=== PATIENT | female | born 1965 | race African-American/Black ===

== ENCOUNTER 2017-01-11 18:03 | Inpatient (IN) | payer BC ==
[~2017-01-11] VITALS: Ht 165.1 cm; Wt 100.7 kg
[~2017-01-11 18:03] MED LIST: CEPHALEXIN500 M1 PO; FLAGYL500 MG PO; FLEXERIL 1010 MG/TAB PO; LORTAB 5/500 501 TAB PO; MACROBID 1100 MG/CAP; MACROBID 1100 MG/CAP PO; NAPROSYN PO; NO HOME MEDICATIONS; NORCO 325 MG-51 TAB PO; NORCO 325 MG-7.1 TAB PO; NYSTATIN OR100 MU/ML PO; PEPCID 20MG TAB20 MG PO; PERCOCET 325 MG1 TA2 PO; PHENERGAN 25 TA25 MG PO; PREDNISONE20 MG PO; PRILOSEC 20MG20 MG PO; PRILOTC; SEPTRA DS 8001 TAB PO; TETRACYCLINE250 MG PO; ULTRAM50 MG PO; VALIUM 5MG T5 MG/TAB PO; ZITHROMAX Z PA250 MG PO; ZOFRAN 4MG T4 MG/TAB PO
[2017-01-11 18:36] LABS: BASO # 0.1 (0.0-0.2); BASO % 0.7 % (0.0-2.0); EOS # 0.1 (0.0-0.7); EOS % 1.3 % (0-4.0); GRAN # 6.3 (1.4-6.5); HEMATOCRIT 37.8 % (37.0-47.0); LYMPH # 3.4 (1.2-3.4); LYMPH % 31.9 % (20.0-51.0); MEAN CELL VOLUME 90 fl (80.0-100.0); MEAN CORPUSCULAR HEMOGLOBIN 31 pg (27.0-31.0); MEAN CORPUSCULAR HGB CONC 34 g/dl (33.0-37.0); MEAN PLATELET VOLUME 10.2 fl (7.4-10.4); MONO # 0.7 (0.1-0.6); MONO % 6.6 % (1.7-9.3); PLATELET COUNT 290 K/mm3 (130-400); RED BLOOD COUNT 4.21 M/mm3 (4.10-5.30); REDCELL DISTRIBUTION WIDTH-CV 12.7 % (11.5-14.5); WHITE BLOOD COUNT 10.6 K/mm3 (4.8-10.8)
[2017-01-11 18:49] LABS: ADJUSTED CALCIUM 9.1 mg/dL (8.4-10.2); ALANINE AMINOTRANSFERASE 28 U/L (9-52); ALBUMIN 4.4 gm/dL (3.5-5.0); ALKALINE PHOSPHATASE 54 U/L (50-136); ANION GAP 13 mmol/L (7-16); BILIRUBIN,TOTAL 0.7 mg/dL (0.0-1.0); BLOOD UREA NITROGEN 13 mg/dL (7-17); CALCIUM 9.4 mg/dL (8.4-10.2); CARBON DIOXIDE 26 mmol/L (22-30); CHLORIDE 99 mmol/L (98-107); CREATININE, serum 0.83 mg/dL (0.52-1.25); GLUCOSE 100 mg/dL (74-106); LIPASE 141 U/L (23-300); POTASSIUM 3.9 mmol/L (3.4-5.0); SODIUM 138 mmol/L (137-145); TOTAL PROTEIN 7.9 gm/dL (6.4-8.2)
[2017-01-11 19:00] LABS: B-TYPE NATRIURETIC PEPTIDE 25 pg/mL (0-125)
[2017-01-11 19:05] LABS: TROPONIN-I < 0.012 ng/mL (0.000-0.034)
[2017-01-11 21:24] VITALS: BP 128/70; PULSE 91; TEMP 97.2
[2017-01-12 03:56] VITALS: BP 127/72; PULSE 94; TEMP 97
[2017-01-12 07:22] VITALS: BP 123/77; PULSE 82
[2017-01-12 11:31] VITALS: BP 105/62; PULSE 78; TEMP 97.7
[2017-01-12 16:12] VITALS: BP 129/74; PULSE 85; TEMP 98.2
[2017-01-12 19:13] VITALS: BP 123/76; PULSE 91; TEMP 98
[2017-01-12 23:51] VITALS: BP 112/54; PULSE 61; TEMP 97.9
[2017-01-13 03:31] VITALS: BP 106/58; PULSE 81; TEMP 98.2
[2017-01-13 07:13] LABS: BASO # 0.1 (0.0-0.2); BASO % 0.5 % (0.0-2.0); EOS # 0.2 (0.0-0.7); EOS % 1.8 % (0-4.0); GRAN # 5.3 (1.4-6.5); GRAN % 56.8 % (42.2-75.2); HEMOGLOBIN 12.1 g/dl (12.5-16.0); LYMPH # 3.3 (1.2-3.4); LYMPH % 34.5 % (20.0-51.0); MEAN CELL VOLUME 92 fl (80.0-100.0); MEAN CORPUSCULAR HEMOGLOBIN 31 pg (27.0-31.0); MEAN CORPUSCULAR HGB CONC 34 g/dl (33.0-37.0); MEAN PLATELET VOLUME 10.5 fl (7.4-10.4); MONO # 0.6 (0.1-0.6); MONO % 6.1 % (1.7-9.3); PLATELET COUNT 294 K/mm3 (130-400); REDCELL DISTRIBUTION WIDTH-CV 13.1 % (11.5-14.5); WHITE BLOOD COUNT 9.4 K/mm3 (4.8-10.8)
[2017-01-13 07:18] LABS: CALCIUM 8.6 mg/dL (8.4-10.2); CREATININE, serum 0.91 mg/dL (0.52-1.25); POTASSIUM 4.2 mmol/L (3.4-5.0)
[2017-01-13 08:09] LABS: FACTOR VIII 156 % (50-150)
[2017-01-13 08:30] VITALS: BP 113/73; PULSE 86; TEMP 98
[2017-01-13 13:22] VITALS: BP 124/63; PULSE 96; TEMP 97.3
[2017-01-13 15:56] VITALS: BP 123/74; PULSE 95; TEMP 98
[2017-01-13 21:09] VITALS: BP 116/71; PULSE 99; TEMP 98.3
[2017-01-13 23:31] VITALS: BP 116/71; PULSE 82; TEMP 98.5
[2017-01-14 04:24] VITALS: BP 119/71; PULSE 83; TEMP 98.6
[2017-01-14 07:25] VITALS: BP 110/72; PULSE 83; TEMP 98.3
[2017-01-14 07:38] LABS: BASO # 0.1 (0.0-0.2); BASO % 0.7 % (0.0-2.0); EOS # 0.2 (0.0-0.7); EOS % 1.8 % (0-4.0); GRAN # 4.4 (1.4-6.5); GRAN % 52.5 % (42.2-75.2); HEMOGLOBIN 12.1 g/dl (12.5-16.0); LYMPH # 3.3 (1.2-3.4); LYMPH % 39.9 % (20.0-51.0); MEAN CELL VOLUME 92 fl (80.0-100.0); MEAN CORPUSCULAR HEMOGLOBIN 31 pg (27.0-31.0); MEAN CORPUSCULAR HGB CONC 33 g/dl (33.0-37.0); MEAN PLATELET VOLUME 10.2 fl (7.4-10.4); MONO # 0.4 (0.1-0.6); MONO % 4.7 % (1.7-9.3); PLATELET COUNT 291 K/mm3 (130-400); RED BLOOD COUNT 3.95 M/mm3 (4.10-5.30); REDCELL DISTRIBUTION WIDTH-CV 12.9 % (11.5-14.5); WHITE BLOOD COUNT 8.4 K/mm3 (4.8-10.8)
[2017-01-14 07:45] LABS: HEMATOCRIT 36.3 % (37.0-47.0)
[2017-01-14 07:50] LABS: CALCIUM 8.8 mg/dL (8.4-10.2); CREATININE, serum 0.84 mg/dL (0.52-1.25); POTASSIUM 4.3 mmol/L (3.4-5.0)
[2017-01-14 09:57] LABS: PROTEIN S ACTIVITY 113 % (65-149)
[2017-01-14 11:32] VITALS: BP 114/79; PULSE 98; TEMP 97.8
[2017-01-14 15:22] VITALS: BP 94/57; PULSE 71; TEMP 97.6
[2017-01-14] MEDS ORDERED: ELIQUIS 5MG PO (17:32)
[2017-01-15 11:54] LABS: PROTEIN C ACTIVITY 111 % (70-150)
== END 2017-01-14 18:09 | disposition home or self-care (01) | DRG 176 ==
LOC: COL.ER 18:03 → MEDICAL 20:02
PROVIDERS: Emergency Medicine; Family Medicine
DX: I26.99 Other pulmonary embolism without acute cor pulmonale (principal); E86.0 Dehydration; K21.9 Gastro-esophageal reflux disease without esophagitis; G47.33 Obstructive sleep apnea (adult) (pediatric); D18.09 Hemangioma of other sites; M79.7 Fibromyalgia; K76.9 Liver disease, unspecified
CPT/HCPCS: 99222-AI; 99232-AI; 99239; A9585; J1650; J2405; J7030; Q9967

== ENCOUNTER 2017-01-30 11:44 | Emergency (ER) | payer BC ==
[~2017-01-30] VITALS: Ht 165.1 cm; Wt 118.6 kg
[~2017-01-30 11:44] MED LIST changes: +ELIQUIS 5MG PO
[2017-01-30 11:48] VITALS: TEMP 98.8
[2017-01-30 14:39] VITALS: BP 137/82; PULSE 90
== END 2017-01-30 14:46 | disposition home or self-care (01) ==
LOC: COL.ER 11:44
DX: S09.90XA Unspecified injury of head, initial encounter (principal); W22.8XXA Striking against or struck by other objects, initial encounter; Z79.01 Long term (current) use of anticoagulants

== ENCOUNTER → 2017-05-07 | Outpatient (CLI) | payer OTHER | LOC: MC.RAD 11:05 | DX: Z12.31 Encounter for screening mammogram for malignant neoplasm of breast (principal) ==

== ENCOUNTER 2017-06-15 12:08 | Emergency (ER) | payer OTHER ==
[~2017-06-15] VITALS: Ht 165.1 cm; Wt 120.0 kg
[2017-06-15 12:12] VITALS: TEMP 97.9
[2017-06-15 12:59] LABS: BASO # 0.1 (0.0-0.2); BASO % 0.7 % (0.0-2.0); EOS # 0.1 (0.0-0.7); EOS % 1.1 % (0-4.0); GRAN # 5.2 (1.4-6.5); GRAN % 58.6 % (42.2-75.2); HEMATOCRIT 39.6 % (37.0-47.0); HEMOGLOBIN 13.5 g/dl (12.5-16.0); LYMPH % 34.1 % (20.0-51.0); MEAN CELL VOLUME 90 fl (80.0-100.0); MEAN CORPUSCULAR HEMOGLOBIN 31 pg (27.0-31.0); MEAN CORPUSCULAR HGB CONC 34 g/dl (33.0-37.0); MEAN PLATELET VOLUME 10.2 fl (7.4-10.4); MONO # 0.5 (0.1-0.6); MONO % 5.2 % (1.7-9.3); PLATELET COUNT 360 K/mm3 (130-400); RED BLOOD COUNT 4.41 M/mm3 (4.10-5.30)
[2017-06-15 13:10] LABS: ALANINE AMINOTRANSFERASE 45 U/L (9-52); ALBUMIN 4.7 gm/dL (3.5-5.0); ALKALINE PHOSPHATASE 64 U/L (50-136); ANION GAP 9 mmol/L (7-16); AST,SGOT 21 U/L (15-37); BILIRUBIN,TOTAL 0.7 mg/dL (0.0-1.0); BLOOD UREA NITROGEN 14 mg/dL (7-17); CALCIUM 9.2 mg/dL (8.4-10.2); CARBON DIOXIDE 25 mmol/L (22-30); CHLORIDE 105 mmol/L (98-107); CREATININE, serum 0.86 mg/dL (0.52-1.25); GLUCOSE 124 mg/dL (74-106); POTASSIUM 3.8 mmol/L (3.4-5.0); SODIUM 139 mmol/L (137-145); TOTAL PROTEIN 8.1 gm/dL (6.4-8.2)
[2017-06-15 13:22] LABS: TROPONIN-I < 0.012 ng/mL (0.000-0.034)
[2017-06-15 13:41] LABS: INR 1.3 (0.8-3.0); PROTHROMBIN TIME 15.2 SECONDS (9.7-12.8)
[2017-06-15] MEDS ORDERED: PRILOSEC 20MG20 MG PO (14:54)
[2017-06-15 15:00] VITALS: BP 115/76; PULSE 80
== END 2017-06-15 15:20 | disposition home or self-care (01) ==
LOC: COL.ER 12:08
PROVIDERS: Emergency Medicine
DX: K21.9 Gastro-esophageal reflux disease without esophagitis (principal); R00.2 Palpitations; E03.9 Hypothyroidism, unspecified; Z86.711 Personal history of pulmonary embolism; Z98.51 Tubal ligation status; Z98.890 Other specified postprocedural states
CPT/HCPCS: J2060; J2765

== ENCOUNTER 2019-02-24 09:47 | Emergency (ER) | payer OTHER ==
[~2019-02-24] VITALS: Ht 165.1 cm; Wt 113.6 kg
[2019-02-24 09:55] VITALS: TEMP 98.9
[2019-02-24 10:48] LABS: BASO # 0.1 (0.0-0.2); BASO % 0.7 % (0.0-2.0); EOS # 0.1 (0.0-0.7); EOS % 1.6 % (0-4.0); GRAN # 3.8 (1.4-6.5); GRAN % 55.2 % (42.2-75.2); HEMATOCRIT 38.1 % (37.0-47.0); HEMOGLOBIN 12.7 g/dl (12.5-16.0); LYMPH # 2.6 (1.2-3.4); LYMPH % 37.7 % (20.0-51.0); MEAN CELL VOLUME 89 fl (80.0-100.0); MEAN CORPUSCULAR HEMOGLOBIN 30 pg (27.0-31.0); MEAN CORPUSCULAR HGB CONC 33 g/dl (33.0-37.0); MEAN PLATELET VOLUME 10.3 fl (7.4-10.4); MONO # 0.3 (0.1-0.6); MONO % 4.7 % (1.7-9.3); PLATELET COUNT 312 K/mm3 (130-400); RED BLOOD COUNT 4.26 M/mm3 (4.10-5.30); REDCELL DISTRIBUTION WIDTH-CV 13.3 % (11.5-14.5)
[2019-02-24 11:03] LABS: ALBUMIN 4.3 gm/dL (3.5-5.0); BILIRUBIN,TOTAL 0.3 mg/dL (0.0-1.0); C-REACTIVE PROTEIN 0.7 mg/dL (0.0-0.9); CALCIUM 8.9 mg/dL (8.4-10.2); CREATININE, serum 0.81 (0.52-1.25); POTASSIUM 4.1 mmol/L (3.4-5.0); TOTAL PROTEIN 7.5 gm/dL (6.4-8.2)
[2019-02-24 11:48] LABS: COLLECTION METHOD CLEAN CATCH
[2019-02-24] MEDS ORDERED: BONINE25 MG PO (12:02)
[2019-02-24 12:08] LABS: MUCOUS Present /lpf; PH 5 (5-8); SQUAMOUS EPITHELIAL 0-2 /hpf; URINE APPEARANCE Clear; URINE BACTERIA None Seen /hpf; URINE BILIRUBIN Negative (NEGATIVE); URINE BLOOD 2+ (NEGATIVE); URINE COLOR Yellow; URINE GLUCOSE Negative (NEGATIVE); URINE KETONE Negative (NEGATIVE); URINE LEUKOCYTE ESTERASE Negative (NEGATIVE); URINE NITRATE Negative (NEGATIVE); URINE PROTEIN(semi-quant) Negative (NEGATIVE); URINE RBC 0-2 /hpf; URINE UROBILINOGEN Negative (NEGATIVE)
[2019-02-24 12:40] VITALS: BP 119/79; PULSE 74
== END 2019-02-24 12:41 | disposition home or self-care (01) ==
LOC: COL.ER 09:47
PROVIDERS: Family Medicine
DX: H83.01 Labyrinthitis, right ear (principal)
CPT/HCPCS: J2405; J7030

== ENCOUNTER 2019-05-08 11:49 | Emergency (ER) | payer BC ==
[~2019-05-08] VITALS: Ht 165.1 cm; Wt 110.5 kg
[~2019-05-08 11:49] MED LIST changes: +BONINE25 MG PO
[2019-05-08 12:09] VITALS: TEMP 98
[2019-05-08 12:34] LABS: BASO # 0.1 (0.0-0.2); BASO % 0.6 % (0.0-2.0); EOS # 0.1 (0.0-0.7); EOS % 1.2 % (0-4.0); GRAN # 4.8 (1.4-6.5); GRAN % 54.4 % (42.2-75.2); HEMATOCRIT 39.4 % (37.0-47.0); HEMOGLOBIN 13.5 g/dl (12.5-16.0); LYMPH # 3.4 (1.2-3.4); LYMPH % 38.6 % (20.0-51.0); MEAN CELL VOLUME 89 fl (80.0-100.0); MEAN CORPUSCULAR HEMOGLOBIN 31 pg (27.0-31.0); MEAN CORPUSCULAR HGB CONC 34 g/dl (33.0-37.0); MEAN PLATELET VOLUME 10.2 fl (7.4-10.4); MONO # 0.4 (0.1-0.6); MONO % 4.9 % (1.7-9.3); PLATELET COUNT 324 K/mm3 (130-400); RED BLOOD COUNT 4.41 M/mm3 (4.10-5.30); REDCELL DISTRIBUTION WIDTH-CV 13.2 % (11.5-14.5)
[2019-05-08 12:37] LABS: PROTHROMBIN TIME 12.1 SECONDS (9.7-12.8)
[2019-05-08 12:53] LABS: ALANINE AMINOTRANSFERASE 28 U/L (9-52); ALBUMIN 4.3 gm/dL (3.5-5.0); ALKALINE PHOSPHATASE 61 U/L (50-136); ANION GAP 8 mmol/L (7-16); AST,SGOT 28 U/L (15-37); BILIRUBIN,TOTAL 0.6 mg/dL (0.0-1.0); BLOOD UREA NITROGEN 11 mg/dL (7-17); CALCIUM 8.8 mg/dL (8.4-10.2); CARBON DIOXIDE 28 mmol/L (22-30); CHLORIDE 103 mmol/L (98-107); GLUCOSE 101 mg/dL (74-106); LIPASE 113 U/L (23-300); SODIUM 139 mmol/L (137-145); TOTAL PROTEIN 7.5 gm/dL (6.4-8.2)
[2019-05-08 12:58] LABS: C-REACTIVE PROTEIN < 0.5 mg/dL (0.0-0.9)
[2019-05-08 13:08] LABS: TROPONIN-I < 0.012 ng/mL (0.000-0.035)
[2019-05-08 13:24] LABS: MONOSCREEN NEGATIVE
[2019-05-08] MEDS ORDERED: LIDODERM 5% PATC1 EA TP (15:09)
[2019-05-08] MEDS ORDERED: FIORICET 325 MG1 TA1 PO (15:09)
[2019-05-08] MEDS ORDERED: NAPROXEN 3375 MG/TAB PO (15:09)
[2019-05-08 15:33] VITALS: BP 113/72; PULSE 72
== END 2019-05-08 15:34 | disposition home or self-care (01) ==
LOC: COL.ER 11:49
PROVIDERS: Emergency Medicine
DX: R51 Headache (principal)
CPT/HCPCS: J0780; J1200; J1885; J7030

== ENCOUNTER → 2019-12-26 | Outpatient (CLI) | payer BC ==
[~2019-12-26] MED LIST changes: +FIORICET 325 MG1 TA1 PO; +LIDODERM 5% PATC1 EA TP; +NAPROXEN 3375 MG/TAB PO
== END ==
LOC: MC.RAD 13:17
DX: Z12.31 Encounter for screening mammogram for malignant neoplasm of breast (principal)

== ENCOUNTER 2020-05-24 09:33 | Emergency (ER) | payer BC ==
[~2020-05-24] VITALS: Ht 165.1 cm; Wt 112.3 kg
[2020-05-24 09:43] VITALS: TEMP 98.4
[2020-05-24 10:26] LABS: COLLECTION METHOD CLEAN CATCH
[2020-05-24 10:37] LABS: BASO # 0.1 (0.0-0.2); BASO % 0.5 % (0.0-2.0); EOS # 0.1 (0.0-0.7); EOS % 0.4 % (0-4.0); GRAN # 9.8 (1.4-6.5); GRAN % 75.5 % (42.2-75.2); HEMATOCRIT 40.3 % (37.0-47.0); HEMOGLOBIN 13.6 g/dl (12.5-16.0); LYMPH # 2.4 (1.2-3.4); LYMPH % 18.7 % (20.0-51.0); MEAN CELL VOLUME 89 fl (80.0-100.0); MEAN CORPUSCULAR HEMOGLOBIN 30 pg (27.0-31.0); MEAN CORPUSCULAR HGB CONC 34 g/dl (33.0-37.0); MONO # 0.6 (0.1-0.6); MONO % 4.7 % (1.7-9.3); PLATELET COUNT 260 K/mm3 (130-400); RED BLOOD COUNT 4.52 M/mm3 (4.10-5.30); REDCELL DISTRIBUTION WIDTH-CV 13.2 % (11.5-14.5)
[2020-05-24 10:39] LABS: MUCOUS Present /lpf; PH 5 (5-8); URINE APPEARANCE Hazy; URINE BACTERIA Rare /hpf; URINE BILIRUBIN Negative (NEGATIVE); URINE BLOOD 2+ (NEGATIVE); URINE COLOR Yellow; URINE GLUCOSE Negative (NEGATIVE); URINE KETONE Negative (NEGATIVE); URINE LEUKOCYTE ESTERASE Negative (NEGATIVE); URINE NITRATE Negative (NEGATIVE); URINE PROTEIN(semi-quant) Negative (NEGATIVE); URINE UROBILINOGEN Negative (NEGATIVE)
[2020-05-24 10:43] LABS: ALBUMIN 4.5 gm/dL (3.5-5.0); BILIRUBIN,TOTAL 0.6 mg/dL (0.0-1.0); C-REACTIVE PROTEIN 1.2 mg/dL (0.0-0.9); CALCIUM 9.1 mg/dL (8.4-10.2); CREATININE, serum 1.24 (0.52-1.25); POTASSIUM 3.6 mmol/L (3.4-5.0); TOTAL PROTEIN 8.1 gm/dL (6.4-8.2)
[2020-05-24 13:50] VITALS: BP 172/94; PULSE 91
[2020-05-25] MEDS ORDERED: PYRIDIUM 100MG100 MG PO (18:37)
== END 2020-05-24 13:50 | disposition left against medical advice (07) ==
LOC: COL.ER 09:33
PROVIDERS: Family Medicine
DX: K85.90 Acute pancreatitis without necrosis or infection, unspecified (principal); N13.2 Hydronephrosis with renal and ureteral calculous obstruction; Z53.29 Procedure and treatment not carried out because of patient's decision for other reasons; Z90.710 Acquired absence of both cervix and uterus; Z98.61 Coronary angioplasty status; Z88.0 Allergy status to penicillin; Z88.1 Allergy status to other antibiotic agents; Z88.2 Allergy status to sulfonamides
CPT/HCPCS: J2270; J2405; J7120

== ENCOUNTER 2020-05-24 17:14 | Inpatient (IN) | payer BC ==
[~2020-05-24] VITALS: Ht 165.1 cm; Wt 118.3 kg
--- NOTE | 2020-05-24 21:40 | NUR ---
Admitted to room 314 via wheelchair. Oriented to room/policy. Admission assessment complete. Admission orders initiated. VS stable. Plan of care discussed for medication admin/urine straining/calling for pain meds as needed. Verbalizes understanding/denies questions/concerns. Call light in reach. Will monitor.
[2020-05-24 21:42] LABS: CHOLESTEROL RISK RATIO 2.8
[2020-05-24 21:47] VITALS: BP 137/59; PULSE 82; TEMP 98.1
[2020-05-24 22:14] LABS: TSH w REFLEX 1.06 uIU/mL (0.465-4.680)
--- NOTE | 2020-05-24 22:30 | NUR ---
Refused Lovenox/flomax. States she doesnt like to take medications. This nurse did go over side effects/adverse reaction on each med but states she is not interested in starting new medications.
[2020-05-25] VITALS (10 sets, daily range): BP systolic 113–142; BP diastolic 65–85; PULSE 84–95; TEMP 97.4–98.5
--- NOTE | 2020-05-25 00:30 | NUR ---
Called this nurse to room to discuss "blood thinners." states she has taken heparin and eliquis in the past and would be willing to start these. Will pass info on to dayshift.
--- NOTE | 2020-05-25 01:28 | NUR ---
PT IS REFUSING TO WEAR A HOSPITAL CPAP. PT IS IN NO RESPIRATORY DISTRESS WITH NORMAL VITALS. WILL CONTINUE TO MONITOR AND ASSESS.
--- NOTE | 2020-05-25 05:00 | NUR ---
Did not rest much this shift. Denied pain/nausea/shortness of breath. States she is nervous about being here and having a hard time sleeping. Denies questions/concerns. Call light in reach. Will monitor.
--- NOTE | 2020-05-25 10:22 | NUR ---
Initial visit; Nurse with patient, [employer] wished patient well and let patient know of the availability of [facility] here at [facility]. Patient thanked [employer] for offering God's blessings.
--- NOTE | 2020-05-25 11:24 | NUR ---
Plan to return home with spouse Rigo . SW met with patient about her care. Patient reports that she resides in [place] with her spouse and DTR Alfie . Patient denies having a DPOA. Patient reports that her spouse can make decisions. Patient reports that her PCP is Dr. Manriquez at [facility] with last appointment in Apr 2019. Patient reports that she use [facility] on [address] in . Patient indicated that she was has CPAP but recently stopped using it. Decnies being on any other supports or having any other DME use. Patient reports that she and her takled about surgery and she has decided to do it. Patient reports being fearful of the seadative and that it is hard to wake her after the procedure, indicated that she needs her cpap before they put her to sleep. SW staffed with nurse about consent to surgery. Notifed of other concerns. SW offered services and supports, will continue to follow.
[2020-05-25 11:31] LABS: BASO % 0.4 % (0.0-2.0); EOS # 0.1 (0.0-0.7); EOS % 1.2 % (0-4.0); GRAN % 67.2 % (42.2-75.2); LYMPH # 2.2 (1.2-3.4); LYMPH % 24.8 % (20.0-51.0); MEAN CELL VOLUME 88 fl (80.0-100.0); MEAN CORPUSCULAR HEMOGLOBIN 30 pg (27.0-31.0); MEAN CORPUSCULAR HGB CONC 34 g/dl (33.0-37.0); MEAN PLATELET VOLUME 9.8 fl (7.4-10.4); MONO # 0.6 (0.1-0.6); MONO % 6.2 % (1.7-9.3); PLATELET COUNT 297 K/mm3 (130-400); RED BLOOD COUNT 4.04 M/mm3 (4.10-5.30); REDCELL DISTRIBUTION WIDTH-CV 13.4 % (11.5-14.5)
[2020-05-25 11:37] LABS: HEMATOCRIT 35.7 % (37.0-47.0)
[2020-05-25 11:40] LABS: ALBUMIN 3.8 gm/dL (3.5-5.0); BILIRUBIN,TOTAL 0.7 mg/dL (0.0-1.0); CALCIUM 8.6 mg/dL (8.4-10.2); CREATININE, serum 1.45 (0.52-1.25); MAGNESIUM 1.8 mg/dL (1.6-2.3); POTASSIUM 3.8 mmol/L (3.4-5.0); TOTAL PROTEIN 6.9 gm/dL (6.4-8.2)
--- NOTE | 2020-05-25 17:50 | NUR ---
Patient taken by bed for procedure. WBG assessed and WNL. Patient NPO for procedure. Has had complaints of pain in right side and lower abdomen. A&Ox4. VSS. IV CDI, fluid by gravity. No further needs expressed from the patient
[2020-05-25] MEDS ORDERED: PYRIDIUM 100MG100 MG PO (18:37)
--- NOTE | 2020-05-25 19:25 | NUR ---
returned to room per bed from PACU, awake and alert, IVinfusing per dial-a-flow at 100ml/hr,
--- NOTE | 2020-05-25 19:45 | NUR ---
full assessment completed, see interventions for further info, assisted up to bathroom and voided large amount red colored urine, then assisted back to bed, denies pain or needs, given her water which she brought with her, tolerate well
--- NOTE | 2020-05-25 20:15 | NUR ---
resting in bed between checks looking at phone, denies needs
--- NOTE | 2020-05-25 21:45 | NUR ---
assisted up to bathroom,
--- NOTE | 2020-05-25 22:40 | NUR ---
appears to be sleeping, in bed, eyes closed, resp quiet and easy
[2020-05-26 00:30] VITALS: BP 130/75; PULSE 91; TEMP 97.8
--- NOTE | 2020-05-26 00:30 | NUR ---
up and about in room inependently, denies pain or needs
--- NOTE | 2020-05-26 02:37 | NUR ---
in bed and appears to be dozing
[2020-05-26 03:13] VITALS: BP 118/62; PULSE 92; TEMP 98.1
--- NOTE | 2020-05-26 06:14 | NUR ---
appears to be sleeping
--- NOTE | 2020-05-26 06:55 | NUR ---
bedside shift report given to NASEEM Sarkar
[2020-05-26 08:26] VITALS: BP 144/76; PULSE 91; TEMP 97.9
--- NOTE | 2020-05-26 09:05 | NUR ---
Pt awake and alert this morning upon entry, no C/O pain at this time, talkative. Shift assessments complete, left Pt call light in reach, bed in lowest position.
[2020-05-26 09:12] LABS: BASO % 0.1 % (0.0-2.0); EOS % 0.1 % (0-4.0); GRAN # 8.3 (1.4-6.5); GRAN % 85.8 % (42.2-75.2); HEMATOCRIT 37.9 % (37.0-47.0); HEMOGLOBIN 12.8 g/dl (12.5-16.0); LYMPH # 1.2 (1.2-3.4); MEAN CELL VOLUME 88 fl (80.0-100.0); MEAN CORPUSCULAR HEMOGLOBIN 30 pg (27.0-31.0); MEAN CORPUSCULAR HGB CONC 34 g/dl (33.0-37.0); MEAN PLATELET VOLUME 9.9 fl (7.4-10.4); MONO # 0.2 (0.1-0.6); MONO % 1.6 % (1.7-9.3); PLATELET COUNT 311 K/mm3 (130-400); RED BLOOD COUNT 4.29 M/mm3 (4.10-5.30); REDCELL DISTRIBUTION WIDTH-CV 13.2 % (11.5-14.5)
[2020-05-26 09:21] LABS: CALCIUM 8.8 mg/dL (8.4-10.2); CREATININE, serum 0.95 (0.52-1.25); POTASSIUM 4.2 mmol/L (3.4-5.0)
--- NOTE | 2020-05-26 11:32 | NUR ---
Checked Pt, in bed awake, no issues noted.
[2020-05-26 12:02] VITALS: BP 152/72; PULSE 88; TEMP 98.3
[2020-05-26 16:00] VITALS: BP 134/78; PULSE 75; TEMP 98
[2020-05-26 18:15] VITALS: BP 134/78; PULSE 75; TEMP 98
--- NOTE | 2020-05-26 18:26 | NUR ---
Pt testing in the room, no complaints today, VS have remained stable
--- NOTE | 2020-05-26 21:55 | NUR ---
Individual alert orient x's 4. denied pain and or discomfort. VSS. Up adlib to restroom with out difficulty.
[2020-05-27] VITALS: BP 136/76; PULSE 78; TEMP 98.2
--- NOTE | 2020-05-27 04:00 | NUR ---
Patient resting in bed. Denies needs. Call light in reach.
[2020-05-27 04:45] VITALS: BP 140/74; PULSE 90; TEMP 97.7
--- NOTE | 2020-05-27 06:33 | NUR ---
Patient had uneventful night. Resting in bed this AM. Call light in reach.
--- NOTE | 2020-05-27 07:09 | NUR ---
Report given to NASEEM Sarkar
[2020-05-27 08:10] VITALS: BP 134/83; PULSE 82; TEMP 97.9
--- NOTE | 2020-05-27 08:30 | NUR ---
Pt awake and alert upon entry, in bed, no C/O pain at this time. shift assessments complete, left Pt call light in reach, bed in lowest position.
[2020-05-27 11:18] VITALS: BP 136/87; PULSE 76; TEMP 97.7
--- NOTE | 2020-05-27 12:50 | NUR ---
Pt discharged to home, discussed discharge packet with Pt. Escorted Pt to entrance, Pt left with spouse via private transportation.
== END 2020-05-27 14:13 | disposition home or self-care (01) | DRG 659 ==
LOC: COL.ER 17:14 → MEDICAL 19:58
PROVIDERS: Internal Medicine; Physician Assistant; Student in an Organized Health Care Education/Training Program; ADMIT Urology
PROC: 0T778DZ Dilation of Left Ureter with Intraluminal Device, Via Natural or Artificial Opening Endoscopic (ICD-10-PCS; principal; 2020-05-25 17:00)
PROC: 0TC78ZZ Extirpation of Matter from Left Ureter, Via Natural or Artificial Opening Endoscopic (ICD-10-PCS; 2020-05-25 17:00)
PROC: BT1F1ZZ Fluoroscopy of Left Kidney, Ureter and Bladder using Low Osmolar Contrast (ICD-10-PCS; 2020-05-25 17:00)
DX: N13.2 Hydronephrosis with renal and ureteral calculous obstruction (principal); K85.90 Acute pancreatitis without necrosis or infection, unspecified; K57.30 Diverticulosis of large intestine without perforation or abscess without bleeding; K76.9 Liver disease, unspecified; N17.9 Acute kidney failure, unspecified; M79.7 Fibromyalgia; E03.9 Hypothyroidism, unspecified; E11.65 Type 2 diabetes mellitus with hyperglycemia; I10 Essential (primary) hypertension; K21.9 Gastro-esophageal reflux disease without esophagitis; G47.33 Obstructive sleep apnea (adult) (pediatric); Z99.81 Dependence on supplemental oxygen; Z86.711 Personal history of pulmonary embolism; Z90.710 Acquired absence of both cervix and uterus; Z88.0 Allergy status to penicillin; Z88.2 Allergy status to sulfonamides
CPT/HCPCS: 99223-AI; 99232-AI; 99239; C1769; C1894; C2617; J0690; J1100; J1650; J1885; J2270; J2405; J2704; J3010; J7030; Q9967

== ENCOUNTER → 2021-01-05 | Outpatient (CLI) | payer BC ==
[~2021-01-05] MED LIST changes: +PYRIDIUM 100MG100 MG PO
== END ==
LOC: MC.RAD 09:28
DX: Z12.31 Encounter for screening mammogram for malignant neoplasm of breast (principal)

== ENCOUNTER 2022-02-09 12:18 | Emergency (ER) | payer BC ==
[~2022-02-09] VITALS: Ht 165.1 cm; Wt 111.4 kg
[2022-02-09 13:19] VITALS: TEMP 98.3
[2022-02-09 14:21] LABS: BASO % 0.5 % (0.0-2.0); EOS # 0.1 K/mm3 (0.0-0.7); EOS % 1.5 % (0.0-4.0); GRAN # 4.3 K/mm3 (1.4-6.5); HEMATOCRIT 38.8 % (37.0-47.0); HEMOGLOBIN 13.1 g/dl (12.5-16.0); LYMPH # 2.8 K/mm3 (1.2-3.4); LYMPH % 36.3 % (20.0-51.0); MEAN CELL VOLUME 89 fl (80.0-100.0); MEAN CORPUSCULAR HEMOGLOBIN 30 pg (27-31); MEAN CORPUSCULAR HGB CONC 34 g/dl (33.0-37.0); MEAN PLATELET VOLUME 9.9 fl (7.4-10.4); MONO # 0.3 K/mm3 (0.1-0.6); MONO % 4.4 % (1.7-9.3); PLATELET COUNT 359 K/mm3 (130-400); RED BLOOD COUNT 4.35 M/mm3 (4.10-5.30); REDCELL DISTRIBUTION WIDTH-CV 13.3 % (11.5-14.5)
[2022-02-09 14:39] LABS: BILIRUBIN,TOTAL 0.4 mg/dL (0.2-1.2); CREATININE, serum 0.92 mg/dL (0.57-1.11); TOTAL PROTEIN 7.4 gm/dL (6.2-8.1)
[2022-02-09 17:34] VITALS: BP 118/75; PULSE 75
== END 2022-02-09 17:36 | disposition home or self-care (01) ==
LOC: COL.ER 12:18
PROVIDERS: Physician Assistant
DX: R53.81 Other malaise (principal); R53.83 Other fatigue; M79.10 Myalgia, unspecified site; Z20.822 Contact with and (suspected) exposure to COVID-19
CPT/HCPCS: J1885

== ENCOUNTER → 2022-02-20 | Outpatient (CLI) | payer BC | LOC: MC.RAD 08:00 | DX: Z12.31 Encounter for screening mammogram for malignant neoplasm of breast (principal) ==